=== PATIENT | female | born 1985 | race American Indian/Alaskan Native ===

== ENCOUNTER 2021-07-06 16:59 | Emergency (ER) | payer OTHER ==
[~2021-07-06] VITALS: Ht 165.1 cm; Wt 68.9 kg
[2021-07-06 17:22] VITALS: BP 130/77
--- NOTE | 2021-07-06 18:04 | NUR ---
pt name called, not in lobby at this time pt phone number straight to voicemail, voicemail left at this time, no answer.
--- NOTE | 2021-07-06 18:10 | NUR ---
Patient ambulated to bed 07 with steady/even gait
--- NOTE | 2021-07-06 18:13 | NUR ---
35 y/o F BIB self from home c/o left foot pain s/p twisting ankle going down stairs 3 days ago. Pt states 8/10, throbbing/constant, non-radiating pain. Pt denies LOC, numbness, loss of sensation. Limited ROM d/t pain; pt states pain worsens with ambulating. Patient denies medications today. Bed locked in lowest position, side rails x 1. PMH/Sx/Meds: Denies NKDA
[2021-07-06] MEDS ORDERED: ACET-8386 PO (18:17)
--- NOTE | 2021-07-06 18:24 | NUR ---
EUN Isbell is reevaluating pt at bedside
[2021-07-06] MEDS ORDERED: KETOROLAC 30 MG/ML VIAL IM ONE (18:30)
--- NOTE | 2021-07-06 18:39 | NUR ---
PT PLACED IN SHORT LEG POSTERIOR SPLINT MADE OUT OF 4" ORTHOGLASS AND WRAPPED WITH 4" NEW WRAPS X3. CMS WNL BEFORE AND AFTER. PT ALSO GIVEN CRUTCHES THAT WERE ADJUSTED TO PT'S SIZE AND HEIGHT. PT STATES THAT THEY ALREADY KNOW HOW TO USE THEM AND SHOWED PROPER DEMENSTRATION ON HOW TO USE CRUTCHES. PT HAD NO FURTHER QUESTIONS.
--- NOTE | 2021-07-06 18:40 | NUR ---
Patient discharged with v/s stable. Written and verbal after care instructions given and explained for Metatarsal Fracture. Patient alert, oriented and verbalized understanding of instructions. Ambulatory by crutches with steady gait. All questions addressed prior to discharge. ID band removed. Patient advised to follow up with PMD. Rx of Hydrocodone/Acetaminophen given. Patient educated on indication of medication including possible reaction and side effects. Opportunity to ask questions provided and answered.
--- NOTE | 2021-07-06 18:40 | NUR ---
Pt states + relief to pain; 5/10 at this time.
== END 2021-07-06 18:40 | disposition home or self-care (01) ==
LOC: MED 16:59
DX: S92.322A Displaced fracture of second metatarsal bone, left foot, initial encounter for closed fracture (principal); X58.XXXA Exposure to other specified factors, initial encounter; Y93.01 Activity, walking, marching and hiking; Y92.89 Other specified places as the place of occurrence of the external cause; Y99.8 Other external cause status
CPT/HCPCS: 29515; 73630; 96372; 99283; J1885